=== PATIENT | male | born 1945 | race Caucasian/White ===

== ENCOUNTER 2018-01-03 08:00 | Outpatient (CLI) | payer MEDICARE, OTHER ==
[2018-01-03 13:26] LABS: BASOPHILS % (AUTO) 0.6 %; EOSINOPHILS # (AUTO) 0.3 10^3/uL (0.0-0.7); EOSINOPHILS % (AUTO) 7.1 %; HGB - HEMOGLOBIN 15.4 g/dL (14.0-18.0); LYMPHOCYTES # (AUTO) 1.3 10^3/uL (1.5-3.5); LYMPHOCYTES % (AUTO) 36.6 %; MEAN CORPUSCULAR HEMOGLOBIN 32.6 pg (27.0-31.0); MEAN CORPUSCULAR HGB CONC 34.3 g/dL (32.0-36.0); MEAN CORPUSCULAR VOLUME 95.1 fL (80.0-94.0); MEAN PLATELET VOLUME 8.5 fL (7.4-11.4); MONOCYTES # (AUTO) 0.5 10^3/uL (0.0-1.0); NEUTROPHILS # (AUTO) 1.5 10^3/uL (1.5-6.6); NEUTROPHILS % (AUTO) 42.7 %; PLT - PLATELET COUNT 182 10^3/uL (130-450); RED BLOOD COUNT 4.73 10^6/uL (4.70-6.10); RED CELL DISTRIBUTION WIDTH 13.7 % (12.0-15.0); WHITE BLOOD COUNT 3.5 x10^3/uL (4.8-10.8)
[2018-01-03 13:47] LABS: ALBUMIN 4.1 g/dL (3.2-5.5); ALBUMIN/GLOBULIN RATIO 1.1 (1.0-2.2); ALKALINE PHOSPHATASE 54 IU/L (42-121); ALT ALANINE AMINOTRANSFERASE 47 IU/L (10-60); AST ASPARTATE AMINOTRANSFERASE 53 IU/L (10-42); BILIRUBIN,TOTAL 0.7 mg/dL (0.2-1.0); BUN - BLOOD UREA NITROGEN 12 mg/dL (6-20); CALCIUM 9.3 mg/dL (8.5-10.3); CARBON DIOXIDE - CO2 28 mmol/L (21-32); CHLORIDE 103 mmol/L (101-111); CHOL/HDL RATIO 5.3 (<5.0); CHOLESTEROL 210 mg/dL; CREATININE 0.9 mg/dL (0.6-1.2); GFR - MDRD 83 (>89); GLUCOSE 101 mg/dL (70-100); HDL CHOLESTEROL 40 mg/dL; LDL CHOLESTEROL,CALCULATED 125 mg/dL; LDL/HDL RATIO 3.1 (<3.6); SODIUM 136 mmol/L (135-145); TOTAL PROTEIN 7.7 g/dL (6.7-8.2); VLDL CHOLESTEROL 45 mg/dL
== END 2018-01-03 08:01 | disposition home or self-care (01) ==
LOC: LAB.WCP 08:00
PROVIDERS: ATTEND Family Medicine
DX: I73.00 Raynaud's syndrome without gangrene (principal); E78.5 Hyperlipidemia, unspecified; Z12.5 Encounter for screening for malignant neoplasm of prostate
CPT/HCPCS: 36415; 80053; 80061; 84443; 85025; G0103; 83721; 84153

== ENCOUNTER → 2018-05-16 | Outpatient (CLI) | payer MEDICARE, OTHER ==
[2018-05-16 12:21] LABS: CHOL/HDL RATIO 4.1 (<5.0); CHOLESTEROL 195 mg/dL; HDL CHOLESTEROL 48 mg/dL; LDL CHOLESTEROL,CALCULATED 123 mg/dL; LDL/HDL RATIO 2.6 (<3.6); VLDL CHOLESTEROL 24 mg/dL
[2018-05-16 12:34] LABS: HB2 TOTAL 16.3 g/dL; HEMOGLOBIN A1C 0.55 g/dL; HEMOGLOBIN A1C % 5.2 % (4.6-6.2)
[2018-05-16 12:43] LABS: FOLATE 21.44 ng/mL (5.90 - >24.8)
[2018-05-19 14:52] LABS: ALBUMIN 4.2 g/dL (3.8-4.8); ALPHA 1 GLOBULIN 0.2 g/dL (0.2-0.3); ALPHA 2 GLOBULIN 0.6 g/dL (0.5-0.9); BETA 1 GLOBULIN 0.4 g/dL (0.4-0.6); BETA 2 GLOBULIN 0.5 g/dL (0.2-0.5); GAMMA GLOBULIN 1.2 g/dL (0.8-1.7)
== END ==
LOC: LAB.WCP 08:00
PROVIDERS: ATTEND Family Medicine
DX: E78.5 Hyperlipidemia, unspecified (principal); G60.3 Idiopathic progressive neuropathy
CPT/HCPCS: 36415; 80061; 82607; 82746; 83036; 83721; 84155; 84165; 85651

== ENCOUNTER 2019-01-01 14:58 | Outpatient (CLI) | payer MEDICARE, OTHER ==
--- NOTE | 2019-01-01 16:48 | Ultrasound Report ---
Reason: MONOCLONAL GAMMOPATHY Procedure Date: 01/01/2019 Accession Number: [id number] / [id number] Procedure: US - Abdomen Complete CPT Code: FULL RESULT: EXAM: ABDOMEN ULTRASOUND EXAM DATE: 01/01/2019 03:07 PM. CLINICAL HISTORY: MONOCLONAL GAMMOPATHY. COMPARISON: None. TECHNIQUE: Real-time scanning was performed with static images obtained. FINDINGS: Liver: No evidence of hepatomegaly or suspicious mass. Diffusely echogenic liver parenchyma. Vertical length is 15.1 cm. Main portal vein flow: Hepatopetal. Gallbladder: Normal. No stones, wall thickening, or sonographic Arndt's sign. Biliary System: Common bile duct measures 2.3 mm. No intrahepatic or extrahepatic ductal dilatation. Pancreas: Pancreas cannot be evaluated because it is obscured by overlying bowel gas. Kidneys: Right: Right renal length is 11.0 cm. Normal. No contour-deforming mass, stones, or hydronephrosis. Left: Left renal length is 10.4 cm. Normal. No contour-deforming mass, stones, or hydronephrosis. Spleen: Splenic length is 9.0 cm. Normal in size and echotexture. Aorta and Inferior Vena Cava: Unremarkable. Abdominal aorta measures 2.1 x 1.6 x 1.9 cm. Other: None. IMPRESSION: 1. Diffusely echogenic liver parenchyma, most often associated with steatosis, but can be associated with cirrhosis and chronic hepatitis. No focal mass or hepatosplenomegaly. 2. The pancreas cannot be evaluated. 3. Otherwise negative examination. RADIA
--- NOTE | 2019-01-02 10:20 | XRAY Report ---
Reason: MONOCLONAL GAMMOPATHY Procedure Date: 01/01/2019 Accession Number: [id number] / [id number] Procedure: XR - Skeletal Survey CPT Code: FULL RESULT: EXAM: OSSEOUS SURVEY EXAM DATE: 01/01/2019 05:05 PM. CLINICAL HISTORY: Monoclonal gammopathy. COMPARISON: None. TECHNIQUE: Complete - Frontal and lateral views of the skull, chest, spine, pelvis, portions of the upper extremities, and portions of the lower extremities. FINDINGS: Skull: No fractures or bone lesions. Chest: The lungs are clear. The cardiomediastinal silhouette is normal. No rib fractures or bone lesions. Cervical Spine: No fracture or bone lesion. There is minimal diffuse degenerative disk and facet disease seen throughout the mid and lower aspects of the cervical spine. Thoracic Spine: No fracture or bone lesion. There is minimal diffuse degenerative disk and facet disease seen throughout the mid and lower aspects of the thoracic spine. Lumbar Spine: No fracture or bone lesion. There is mild diffuse degenerative disk and facet disease seen throughout the mid and lower aspects of the cervical spine. Pelvis: No fractures or bone lesions. Mild bilateral hip DJD changes are seen. Upper Extremities: No fractures or bone lesions. The visualized joint spaces are normal. Lower Extremities: No fractures or bone lesions. The visualized joint spaces are normal. Other: The other visualized soft tissues are normal. IMPRESSION: No bone lesion demonstrated. Minimal to mild degenerative changes seen in the spine and hips. RADIA
== END 2019-01-01 14:59 | disposition home or self-care (01) ==
LOC: DI 14:58
PROVIDERS: ATTEND Internal Medicine
DX: D47.2 Monoclonal gammopathy (principal); M51.34 Other intervertebral disc degeneration, thoracic region; M51.36 Other intervertebral disc degeneration, lumbar region; M47.9 Spondylosis, unspecified; M50.30 Other cervical disc degeneration, unspecified cervical region; M16.0 Bilateral primary osteoarthritis of hip
CPT/HCPCS: 76700; 77075

== ENCOUNTER 2019-04-02 07:09 | Outpatient (CLI) | payer MEDICARE, OTHER ==
[2019-04-02 13:31] LABS: ALBUMIN 4.1 g/dL (3.2-5.5); ALBUMIN/GLOBULIN RATIO 1.1 (1.0-2.2); ALKALINE PHOSPHATASE 50 IU/L (42-121); ALT ALANINE AMINOTRANSFERASE 35 IU/L (10-60); AST ASPARTATE AMINOTRANSFERASE 43 IU/L (10-42); BILIRUBIN,TOTAL 1.2 mg/dL (0.2-1.0); BUN - BLOOD UREA NITROGEN 13 mg/dL (6-20); CALCIUM 9.5 mg/dL (8.5-10.3); CARBON DIOXIDE - CO2 27 mmol/L (21-32); CHLORIDE 102 mmol/L (101-111); CHOL/HDL RATIO 3.4 (<5.0); CHOLESTEROL 187 mg/dL; CREATININE 0.9 mg/dL (0.6-1.2); GFR - MDRD 83 (>89); GLUCOSE 96 mg/dL (70-100); HDL CHOLESTEROL 55 mg/dL; LDL CHOLESTEROL,CALCULATED 112 mg/dL; SODIUM 140 mmol/L (135-145); TOTAL PROTEIN 7.7 g/dL (6.7-8.2); VLDL CHOLESTEROL 20 mg/dL
== END 2019-04-02 07:10 | disposition home or self-care (01) ==
LOC: LAB.WCP 07:09
PROVIDERS: ATTEND Family Medicine
DX: E78.5 Hyperlipidemia, unspecified (principal); Z12.5 Encounter for screening for malignant neoplasm of prostate; G62.9 Polyneuropathy, unspecified
CPT/HCPCS: 36415; 80053; 80061; 82607; G0103; 83721; 84153

== ENCOUNTER 2019-04-22 | Outpatient (CLI) | payer MEDICARE, OTHER | END 2019-04-22 23:59 | disposition home or self-care (01) | DX: R74.8 Abnormal levels of other serum enzymes (principal) ==

== ENCOUNTER 2020-03-31 08:00 | Outpatient (CLI) | payer MEDICARE, OTHER ==
[2020-03-31 12:37] LABS: ALBUMIN 4.2 g/dL (3.2-5.5); ALBUMIN/GLOBULIN RATIO 1.4 (1.0-2.2); ALKALINE PHOSPHATASE 50 IU/L (42-121); ALT ALANINE AMINOTRANSFERASE 34 IU/L (10-60); AST ASPARTATE AMINOTRANSFERASE 48 IU/L (10-42); BILIRUBIN,TOTAL 1.1 mg/dL (0.2-1.0); BUN - BLOOD UREA NITROGEN 17 mg/dL (6-20); CALCIUM 9.6 mg/dL (8.5-10.3); CARBON DIOXIDE - CO2 27 mmol/L (21-32); CHLORIDE 99 mmol/L (101-111); CHOL/HDL RATIO 3.1 (<5.0); CHOLESTEROL 179 mg/dL; GLUCOSE 91 mg/dL (70-100); HDL CHOLESTEROL 57 mg/dL; LDL CHOLESTEROL,CALCULATED 104 mg/dL; LDL/HDL RATIO 1.8 (<3.6); SODIUM 137 mmol/L (135-145); TOTAL PROTEIN 7.3 g/dL (6.7-8.2); VLDL CHOLESTEROL 18 mg/dL
== END 2020-03-31 23:59 | disposition home or self-care (01) ==
LOC: LAB.WCP 08:00
PROVIDERS: ATTEND Physician Assistant Medical
DX: R74.8 Abnormal levels of other serum enzymes (principal); E78.5 Hyperlipidemia, unspecified; Z12.5 Encounter for screening for malignant neoplasm of prostate; E53.8 Deficiency of other specified B group vitamins
CPT/HCPCS: 36415; 80053; 80061; 82607; G0103; 83721; 84153

== ENCOUNTER 2021-06-01 07:20 | Outpatient (CLI) | payer MEDICARE, OTHER ==
[2021-06-01 11:49] LABS: BASOPHILS % (AUTO) 0.6 %; EOSINOPHILS # (AUTO) 0.2 10^3/uL (0.0-0.7); EOSINOPHILS % (AUTO) 7.7 %; HCT - HEMATOCRIT 43.6 % (42.0-52.0); HGB - HEMOGLOBIN 14.3 g/dL (14.0-18.0); LYMPHOCYTES # (AUTO) 1.1 10^3/uL (1.5-3.5); LYMPHOCYTES % (AUTO) 36.3 %; MEAN CORPUSCULAR HEMOGLOBIN 32.5 pg (27.0-31.0); MEAN CORPUSCULAR HGB CONC 32.8 g/dL (32.0-36.0); MEAN CORPUSCULAR VOLUME 99.1 fL (80.0-94.0); MEAN PLATELET VOLUME 9.9 fL (7.4-11.4); MONOCYTES # (AUTO) 0.6 10^3/uL (0.0-1.0); MONOCYTES % (AUTO) 18.6 %; NEUTROPHILS # (AUTO) 1.1 10^3/uL (1.5-6.6); NEUTROPHILS % (AUTO) 36.8 %; PLT - PLATELET COUNT 238 10^3/uL (130-450); RED CELL DISTRIBUTION WIDTH 12.8 % (12.0-15.0); WHITE BLOOD COUNT 3.1 x10^3/uL (4.8-10.8)
[2021-06-01 12:37] LABS: ALBUMIN 3.8 g/dL (3.2-5.5); ALKALINE PHOSPHATASE 46 IU/L (42-121); ALT ALANINE AMINOTRANSFERASE 22 IU/L (10-60); AST ASPARTATE AMINOTRANSFERASE 32 IU/L (10-42); BILIRUBIN,TOTAL 0.6 mg/dL (0.2-1.0); BUN - BLOOD UREA NITROGEN 18 mg/dL (6-20); CALCIUM 9.5 mg/dL (8.5-10.3); CARBON DIOXIDE - CO2 27 mmol/L (21-32); CHLORIDE 101 mmol/L (101-111); CHOL/HDL RATIO 3.3 (<5.0); CHOLESTEROL 182 mg/dL; CREATININE 0.8 mg/dL (0.6-1.2); GFR - MDRD 94 (>89); GLUCOSE 102 mg/dL (70-100); HDL CHOLESTEROL 55 mg/dL; LDL CHOLESTEROL,CALCULATED 116 mg/dL; LDL/HDL RATIO 2.1 (<3.6); SODIUM 137 mmol/L (135-145); TOTAL PROTEIN 7.5 g/dL (6.7-8.2); TRIGLYCERIDES 54 mg/dL; VLDL CHOLESTEROL 11 mg/dL
== END 2021-06-01 23:59 | disposition home or self-care (01) ==
LOC: LAB.WCP 07:20
PROVIDERS: ATTEND Physician Assistant Medical
DX: E78.5 Hyperlipidemia, unspecified (principal); E53.8 Deficiency of other specified B group vitamins; N52.9 Male erectile dysfunction, unspecified
CPT/HCPCS: 36415; 80053; 80061; 82607; 83721; 84153; 85025

== ENCOUNTER 2021-06-30 15:48 | Outpatient (CLI) | payer MEDICARE, OTHER ==
--- NOTE | 2021-06-30 16:32 | XRAY Report ---
PROCEDURE: Chest 2 View X-Ray INDICATIONS: CHEST PX TECHNIQUE: 2 view(s) of the chest. COMPARISON: None. FINDINGS: Surgical changes and devices: None. Lungs and pleura: No pleural effusions or pneumothorax. Lungs are clear. Mediastinum: Mediastinal contours are normal. Heart size is normal. Bones and chest wall: No suspicious bony abnormalities. Soft tissues appear unremarkable. IMPRESSION: No acute cardiopulmonary pathology. Reviewed by: Joaquín Lora MD on 06/30/2021 4:30 PM PDT Approved by: Joaquín Lora MD on 06/30/2021 4:30 PM PDT Station ID: [id number]
== END 2021-06-30 15:49 | disposition home or self-care (01) ==
LOC: DI.N 15:48
PROVIDERS: ATTEND Physician Assistant Medical
DX: R07.9 Chest pain, unspecified (principal)

== ENCOUNTER 2021-08-10 08:47 | Outpatient (CLI) | payer MEDICARE, OTHER ==
--- NOTE | 2021-08-10 10:00 | CARDIAC PROCEDURE NOTE ---
Stress Test Report Service Date: 08/10/21 Service Time: 09:00 Ordering Provider: Amy Lehman PA-C Indication for Test: Assess chest pain. Significant Medical History: Doug has been generally healthy and active, treated only with simvastatin for about 10 years for hyperlipidemia in the setting of a minor family history of coronary artery disease (see below). [place] is [place] on [employer] [place] and in [place] in [place]. He generally tolerates these activities very well and is here today because he had a single episode of pressure-like chest pain that occurred at about 9000 feet while "yeung boning" (sidestepping vigorously[place] up the [place]. He describes this level of exertion as quite beyond what he is normally acccustomed to. He was already somewhat sweaty and does not recall being more so. He does not recall being unable to catch his breath, having lightheadedness or palpitations. The discomfort abated with rest after a few minutes. Over the ensuing 6 months he has pursued his regular sea level activities without recurrent symptoms. Cardiac Risk Factors: There is some CAD history in his father's family that may have included his grandparents; his father had a couple of stents in his early-mid 70s and was also treated for intermittent atrial fibrillation. Doug has been treated with statin for about 10 years, but has no history of diabetes, hypertension or cigarette smoking ever. Type of Stress Test: ETT with Myocardial Perfusion Imaging Procedure: -Exercise Treadmill Test- After signing informed consent, the patient rest 99Tc SPECT imaging and then performed treadmill exercise using a Korey protocol. The patient exercised for 8 minutes 12 seconds and achieved a peak heart rate of 145 (99 percent predicted maximum heart rate for age), and an estimated workload of 10.2 METS. The test was terminated due to fatigue/shortness of breath with mild pressure- like lower substernal discomfort, having achieved target heart rate. Resting heart rate: 68 Peak heart rate: 145 Normal response to exercise. Resting BP: 139/83 Peak BP: 197/83 Borderline hypertensive at rest with physiologic BP response to exercise. Rhythm during exercise: Sinus rhythm throughout. Symptoms: Patient developed mild pressure-like substernal discomfort (rated "2/10") in mid stage 2, with slight incremental increase at peak exertion and rapid dissipation in recovery. EKG at rest showed normal sinus rhythm with marked left axis deviation (-77 degrees) and borderline intraventricular conduction delay (WXPz=069 ms); differential includes left anterior fascicular block with QRS prolongation and prior anteroseptal infarct versus left bundle branch block. EKG at peak stress showed no ischemia by EKG criteria, though EKG is deemed unreliable due to intraventricular conduction delay. In Recovery heart rate and blood pressure returned to near baseline levels. Nuclear imaging performed at rest and with stress and interpretation will be reported separately. IVahe MD, was present throughout this treadmill stress study and supervised it in its entirety. Summary: 1) Exercise tolerance well above average for age as evidenced by MORENA of -29%. 2) Abnormal resting EKG. 3) Adequate level of exercise was achieved on this treadmill stress test. 4) Borderline hypertensive at baseline with physiologic BP response to exercise. 5) No ischemic changes by EKG criteria were seen at peak stress. 6) Nuclear image interpretation includes normal left ventricular size and systolic function. Per my interpretation, resting SPECT images show a small inferior defect and a moderate-sized perfusion defect lateral to the apex; following peak stress there is no change in appearance of the inferior defect and a slight increase in size of the infero-apical defect. Formal overread by Radiologist differs, with report of normal perfusion in both rest and stress phases. CONCLUSIONS: 1) Clinically positive study with recreation of discomfort of similar quality for which the study was ordered. 2) EKG probably uninterpretable due to resting conduction abnormality. 3) 99Tc-Myoview SPECT images appear to show a small fixed inferior defect and a larger resting apical lateral defect, that is larger following peak stress, consistent with lior-scar ischemia. 4) Due to resting borderline blood pressure, monitoring and creation of BP log was recommended. Patient also recommended to bring his wrist cuff into a visit with his provider to assess its accuracy. 5) Additional recommendations discussed with referring provider and patient include: resume daily 81 mg ASA, rx prn SL NTG and referral to Cardiology (patient desires to see Dr Greenwood) for further evaluation. Patient was provided with a CD containing the nuclear images, for review at Cardiology evaluation. ]
--- NOTE | 2021-08-10 13:55 | Nuclear Medicine Report ---
PROCEDURE: Rest and exercise myocardial perfusion SPECT with gated imaging and ejection fraction INDICATIONS: CHEST PAIN/EXERCISE RADIOPHARMACEUTICAL: 12.2 mCi Tc-99m Myoview IV at rest and 32.2 mCi Tc-99m Myoview IV at peak exerc ise. Tie-ney-podykjvn was performed. TECHNIQUE: Radiopharmaceutical was injected at peak stress test, and also at rest. SPECT images wer e obtained. SPECT myocardial perfusion images were displayed in short axis, horizontal long axis, an d vertical long axis views. Gated images were reviewed using AutoQUANT software. COMPARISON: None available. FINDINGS: Raw data: There is good myocardial labeling by radiotracer. No significant motion artifacts. Lung- to-heart ratio is 0.28 (normal is less than 0.46 for tetrafosmin tracer). Left ventricle function: Gated images demonstrate normal left ventricle wall thickening. No segment al wall motion abnormality. No transient ischemic dilation; TID is 0.96 (normal less than 1.30). Th e left ventricle resting end-diastolic volume is 69 mL. Left ventricle stress ejection fraction is 7 5%; normal values are above 45%. Myocardial perfusion: There is normal distribution of activity in the left and right ventricular ted cardium. No fixed or reversible perfusion defects. IMPRESSION: 1. Normal myocardial perfusion. 2. Normal left ventricular function. PQRS ATTESTATIONS: Measure 322 - Is this imaging test primarily performed on a low-risk surgery patient for preoperative evaluation within 30 days preceding their low-risk non-cardiac surgery? Low-risk surgery is defined as cardiac or myocardial infarction less than 1%, including (but not limited to) endoscopic pr ocedures, superficial procedures, cataract surgery, and excisional breast surgery: Answer: No Measure 323 - Is this imaging test performed primarily for the monitoring of an asymptomatic patient who had percutaneous coronary intervention on the visit date or within 2 years of the visit date? An swer: No Measure 324 - Is this imaging test performed primarily for the initial detection and risk assessment on an asymptomatic, low coronary heart disease patient? Low CHD risk definition = clinicians should consider the maximum number of available patient factors used to estimate risk based on Burgess (A TP III criteria), typically age, gender, diabetes, smoking status, and use of blood pressure medicati on, and integrate age appropriate estimates for missing elements, such as LDL or standard blood press ure. Answer: No Reviewed by: Sahbana Calvert MD on 08/10/2021 1:53 PM PST Approved by: Shabana Calvert MD on 08/10/2021 1:53 PM PST Station ID: [id number]
== END 2021-08-10 08:48 | disposition home or self-care (01) ==
LOC: DI 08:47
PROVIDERS: ATTEND Physician Assistant Medical
DX: R07.9 Chest pain, unspecified (principal); R93.1 Abnormal findings on diagnostic imaging of heart and coronary circulation; E78.5 Hyperlipidemia, unspecified; Z82.49 Family history of ischemic heart disease and other diseases of the circulatory system
CPT/HCPCS: 78452; 93016; 93017; 93018; A9500

== ENCOUNTER 2021-08-26 10:20 | Outpatient (CLI) | payer MEDICARE, OTHER | END 2021-08-26 10:21 | disposition home or self-care (01) | LOC: DI 10:20 | PROVIDERS: ATTEND Physician Assistant Medical | DX: R07.9 Chest pain, unspecified (principal); I87.8 Other specified disorders of veins; I77.810 Thoracic aortic ectasia | CPT/HCPCS: 93306 ==

== ENCOUNTER 2022-08-25 06:55 | Outpatient (CLI) | payer MEDICARE, OTHER ==
[2022-08-25 07:24] LABS: BASOPHILS % (AUTO) 0.9 %; EOSINOPHILS # (AUTO) 0.5 10^3/uL (0.0-0.7); HCT - HEMATOCRIT 45.7 % (42.0-52.0); HGB - HEMOGLOBIN 15.4 g/dL (14.0-18.0); LYMPHOCYTES # (AUTO) 1.6 10^3/uL (1.5-3.5); LYMPHOCYTES % (AUTO) 34.6 %; MEAN CORPUSCULAR HEMOGLOBIN 32.6 pg (27.0-31.0); MEAN CORPUSCULAR HGB CONC 33.7 g/dL (32.0-36.0); MEAN CORPUSCULAR VOLUME 96.8 fL (80.0-94.0); MEAN PLATELET VOLUME 9.2 fL (7.4-11.4); MONOCYTES # (AUTO) 0.7 10^3/uL (0.0-1.0); MONOCYTES % (AUTO) 14.5 %; NEUTROPHILS # (AUTO) 1.8 10^3/uL (1.5-6.6); NEUTROPHILS % (AUTO) 38.8 %; PLT - PLATELET COUNT 200 10^3/uL (130-450); RED BLOOD COUNT 4.72 10^6/uL (4.70-6.10); RED CELL DISTRIBUTION WIDTH 13.5 % (12.0-15.0); WHITE BLOOD COUNT 4.6 x10^3/uL (4.8-10.8)
[2022-08-25 07:55] LABS: ALBUMIN 4.1 g/dL (3.2-5.5); ALBUMIN/GLOBULIN RATIO 1.1 (1.0-2.2); ALKALINE PHOSPHATASE 50 IU/L (42-121); ALT ALANINE AMINOTRANSFERASE 34 IU/L (10-60); AST ASPARTATE AMINOTRANSFERASE 42 IU/L (10-42); BILIRUBIN,TOTAL 1.2 mg/dL (0.2-1.0); BUN - BLOOD UREA NITROGEN 15 mg/dL (6-20); CALCIUM 9.6 mg/dL (8.5-10.3); CARBON DIOXIDE - CO2 27 mmol/L (21-32); CHLORIDE 102 mmol/L (101-111); CHOL/HDL RATIO 3.1 (<5.0); CHOLESTEROL 187 mg/dL; CREATININE 0.9 mg/dL (0.6-1.2); GFR - MDRD 82 (>89); GLUCOSE 100 mg/dL (70-100); HDL CHOLESTEROL 61 mg/dL; LDL CHOLESTEROL,CALCULATED 113 mg/dL; LDL/HDL RATIO 1.9 (<3.6); POTASSIUM 4.2 mmol/L (3.5-5.0); SODIUM 139 mmol/L (135-145); TOTAL PROTEIN 7.7 g/dL (6.7-8.2); TRIGLYCERIDES 66 mg/dL; VLDL CHOLESTEROL 13 mg/dL
== END 2022-08-25 06:56 | disposition home or self-care (01) ==
LOC: LAB 06:55
PROVIDERS: ATTEND Physician Assistant Medical
DX: R74.8 Abnormal levels of other serum enzymes (principal); E78.5 Hyperlipidemia, unspecified; E53.8 Deficiency of other specified B group vitamins; Z12.5 Encounter for screening for malignant neoplasm of prostate
CPT/HCPCS: 36415; 80053; 80061; 82607; 85025; G0103; 83721; 84153

== ENCOUNTER 2023-07-28 07:23 | Outpatient (CLI) | payer MEDICARE, OTHER ==
[2023-07-28 08:10] LABS: CHOL/HDL RATIO 3.2 (<5.0); CHOLESTEROL 167 mg/dL; HDL CHOLESTEROL 53 mg/dL; LDL CHOLESTEROL,CALCULATED 98 mg/dL; LDL/HDL RATIO 1.8 (<3.6); TRIGLYCERIDES 81 mg/dL (48-352); VLDL CHOLESTEROL 16 mg/dL
== END 2023-07-28 07:24 | disposition home or self-care (01) ==
LOC: LAB 07:23
PROVIDERS: ATTEND Physician Assistant Medical
DX: E78.5 Hyperlipidemia, unspecified (principal); E53.8 Deficiency of other specified B group vitamins; R97.20 Elevated prostate specific antigen [PSA]
CPT/HCPCS: 36415; 80061; 82607; 83721; 84153; 84154

== ENCOUNTER 2023-10-10 11:02 | Emergency (ER) | payer MEDICARE, OTHER ==
--- NOTE | 2023-10-10 12:09 | ED Physician Documentation ---
History of Present Illness - Stated complaint Stated Complaint: DOUBLE VISION - Chief complaint Chief Complaint: Neuro - History obtained from History obtained from: Patient - History of Present Illness Timing: Yesterday Pain level max: 0 Pain level now: 0 - Additonal information Additional information: Patient is a 77-year-old male with a history of IgM monoclonal gammopathy of unclear significance. Has a history of chronic numbness in the bilateral lower extremities as well. No cardiac history. He states he was playing [employer] yesterday when he had about a 10 to 15-second episode of blurred vision, lightheadedness and appeared pale to his plain partner. Symptoms resolved quickly. He was able to continue his game without any ill effects. He has not had any symptoms since that time. No focal weakness, numbness, difficulty with speech, facial droop, etc. He states he did have another episode about 10 to 11 days ago when he was going to the bathroom and felt lightheaded. Currently is fully asymptomatic. Not on anticoagulants. Review of Systems Constitutional: denies: Fever, Chills Throat: denies: Sore throat GI: denies: Abdominal Pain, Vomiting, Diarrhea Skin: denies: Rash Musculoskeletal: denies: Neck pain, Back pain Neurologic: denies: Headache PD PAST MEDICAL HISTORY - Past Medical History Past Medical History: Yes Cardiovascular: High cholesterol Respiratory: None Neuro: None, Peripheral neuropathy Endocrine/Autoimmune: None GI: None : None Psych: None Musculoskeletal: None Derm: None - Past Surgical History Past Surgical History: Yes General: Appendectomy Ortho: Arthroscopic surgery - Present Medications Home Medications: Ambulatory Orders Medication Instructions Recorded Confirmed Acyclovir 400 mg PO TID PRN 12/05/18 10/10/23 NIFEdipine [Adalat cc] 30 mg PO DAILY PRN 12/05/18 10/10/23 Sildenafil Citrate [Viagra] 100 mg PO DAILY PRN 12/05/18 10/10/23 Simvastatin [Zocor] 20 mg PO DAILY 12/05/18 10/10/23 - Allergies Allergies/Adverse Reactions: Allergies Allergy/AdvReac Type Severity Reaction Status Date / Time No Known Drug Allergies Allergy Verified 10/10/23 11:08 - Social History Does the pt smoke?: No Smoking Status: Never smoker Does the pt drink ETOH?: Yes ETOH Use: Beer Does the pt have substance abuse?: Yes Substance Use and Type: CBD oil / Products - Immunizations Immunizations are current?: Yes - POLST Patient has POLST: No PD ED PE NORMAL - Vitals Vital signs reviewed: Yes - General General: Alert and oriented X 3, No acute distress - HEENT HEENT: Atraumatic, PERRL, EOMI, Moist mucous membranes - Neck Neck: Supple, no meningeal sign, No bony TTP, No JVD, No bruit - Cardiac Cardiac: RRR, No murmur, No gallop, No rub, Strong equal pulses - Respiratory Respiratory: No respiratory distress, Clear bilaterally - Abdomen Abdomen: Soft, Non tender, Non distended - Back Back: No spinal TTP - Derm Derm: Warm and dry - Extremities Extremities: No edema, No calf tenderness / cord - Neuro Neuro: Alert and oriented X 3, insurance account assistant 2-12 intact, No motor deficit, No sensory deficit, Normal speech Eye Opening: Spontaneous Motor: Obeys Commands Verbal: Oriented GCS Score: 15 - Psych Psych: Normal mood, Normal affect Results - Vitals Vitals: Vital Signs - 24 hr 10/10/23 10/10/23 10/10/23 11:11 12:18 13:39 Temperature 36.3 C L 36.8 C Heart Rate 70 61 60 Respiratory 16 19 16 Rate Blood Pressure 148/71 H 141/65 H 141/76 H O2 Saturation 100 97 100 Oxygen O2 Source Room air - EKG (time done) 1213 EKG releavant findings:: EKG personally interpreted by author of this note. Relevant findings are: Rate: Rate (enter#) (58) Rhythm: NSR [place]: Normal Intervals: RBBB (Incomplete) QRS: Normal Ischemia: Normal ST segments - Labs Labs: Laboratory Tests 10/10/23 10/10/23 12:30 12:30 WBC 3.6 L RBC 4.45 L Hgb 14.3 Hct 43.6 MCV 98.0 H MCH 32.1 H MCHC 32.8 RDW 13.6 Plt Count 216 MPV 9.8 Neut # (Auto) 1.6 Lymph # (Auto) 1.2 L [place] # (Auto) 0.6 Eos # (Auto) 0.2 Baso # (Auto) 0.0 Absolute Nucleated RBC 0.00 Nucleated RBC % 0.0 Sodium 139 Potassium 4.1 Chloride 102 Carbon Dioxide 28 Anion Gap 9.0 BUN 15 Creatinine 0.8 Estimated GFR (MDRD) 94 Glucose 97 Calcium 9.7 Total Bilirubin 0.5 AST 34 ALT 25 Alkaline Phosphatase 48 Troponin I High Sens 2.7 Total Protein 7.5 Albumin 4.1 Globulin 3.4 Albumin/Globulin Ratio 1.2 Lipase 70 - Rads (name of study) cxr Relevant Findings:: Final report received, See rad report PD Medical Decision Making - ED course Complexity details: reviewed results, re-evaluated patient, considered differential, d/w patient ED course: Patient with an episode of 10 to 15 seconds of appearing pale along with blurred vision yesterday while playing [employer]. No chest pain. No headache, no tr auma. No indication for emergent neuroimaging. No acute findings on EKG, chest x-ray, laboratory testing. No focal neurological deficits to suggest TIA or stroke. Symptoms are more consistent with potential arrhythmia. Recommend that he follow-up closely with his PCP for a heart monitor. Recommend that he return if you develop any focal neurological deficits, recurrent symptoms or any new or worsening symptoms. He is currently fully asymptomatic. Ambulating without difficulty. Patient counseled regarding signs and symptoms for which I believe and urgent re-evaluation would be necessary. Patient with good understanding of and agreement to plan and is comfortable going home at this time This document was made in part using voice recognition software. While efforts are made to proofread this document, sound alike and grammatical errors may occur. Departure - Departure Disposition: 01 Home, Self Care Clinical Impression: Light-headed feeling Condition: Good Instructions: ED Near Syncope Unkn Follow-Up: Bella Lehman PA-C [Primary Care Provider] - Within 1 week Comments: Your symptoms today are concerning for a potential arrhythmia. It is recommended you contact your primary care provider to have a Holter monitor or Zio patch placed which can monitor you for any potential arrhythmias. Your laboratory testing, EKG and chest x-ray do not show any acute abnormalities today. You have no neurological deficits today. Please return if you worsen. Forms: PCP List Discharge Date/Time: 10/10/23 13:39 NIHSS - Time Time: 12:05 - Level of Consciousness Level of consciousness: (0) Alert, Keenly responsive LOC Questions: (0) Answers both Q's correct LOC Commands: (0) Performs both correctly - Gaze Best Gaze: (0) Normal - Visual Visual: (0) No loss - Facial Palsy Facial Palsy: (0) Normal, symmetrical movement - Motor Arms (both separate) Motor Arm (right): (0) No drift Motor Arm (left): (0) No drift - Motor Legs (both separate) Motor Leg (right): (0) No drift Motor Leg (left): (0) No drift - Limb Ataxia Limb Ataxia: (0) Absent - Sensory Sensory: (0) Normal - Best Language Best Language: (0) No aphasia - Dysarthria Dysarthria: (0) Normal - Extinction and Inattention (formally neg Extinction and inattention: (0) No abnormality - Total Score/Results Total Score/Result: 0
--- NOTE | 2023-10-10 12:20 | XRAY Report ---
PROCEDURE: Chest 1V INDICATIONS: Chest Pain TECHNIQUE: One view of the chest was acquired. COMPARISON: 06/30/2021 FINDINGS: Surgical changes and devices: None. Lungs and pleura: No pleural effusions or pneumothorax. Lungs are clear. Mediastinum: Mediastinal contours appear normal. Heart size is normal. Bones and chest wall: No suspicious bony lesions. Overlying soft tissues appear unremarkable. IMPRESSION: No acute cardiopulmonary process. Reviewed by: Shabana Cody MD on 10/10/2023 12:19 PM PST Approved by: Shabana Cody MD on 10/10/2023 12:19 PM [facility] Station ID: [id number]
[2023-10-10 12:53] LABS: ALBUMIN 4.1 g/dL (3.2-5.5); ALBUMIN/GLOBULIN RATIO 1.2 (1.0-2.2); BILIRUBIN,TOTAL 0.5 mg/dL (0.2-1.0); CALCIUM 9.7 mg/dL (8.5-10.3); CREATININE 0.8 mg/dL (0.6-1.3); POTASSIUM 4.1 mmol/L (3.5-4.5); TOTAL PROTEIN 7.5 g/dL (6.4-8.9)
[2023-10-10 13:00] LABS: TROPONIN I HIGH SENSITIVITY 2.7 ng/L (2.3-19.7)
[2023-10-10 13:09] LABS: BASOPHILS % (AUTO) 0.8 %; EOSINOPHILS # (AUTO) 0.2 10^3/uL (0.0-0.7); EOSINOPHILS % (AUTO) 4.1 %; HCT - HEMATOCRIT 43.6 % (42.0-52.0); HGB - HEMOGLOBIN 14.3 g/dL (14.0-18.0); LYMPHOCYTES # (AUTO) 1.2 10^3/uL (1.5-3.5); LYMPHOCYTES % (AUTO) 33.7 %; MEAN CORPUSCULAR HEMOGLOBIN 32.1 pg (27.0-31.0); MEAN CORPUSCULAR HGB CONC 32.8 g/dL (32.0-36.0); MEAN PLATELET VOLUME 9.8 fL (7.4-11.4); MONOCYTES # (AUTO) 0.6 10^3/uL (0.0-1.0); MONOCYTES % (AUTO) 17.4 %; NEUTROPHILS # (AUTO) 1.6 10^3/uL (1.5-6.6); PLT - PLATELET COUNT 216 10^3/uL (130-450); RED BLOOD COUNT 4.45 10^6/uL (4.70-6.10); RED CELL DISTRIBUTION WIDTH 13.6 % (12.0-15.0); WHITE BLOOD COUNT 3.6 x10^3/uL (4.8-10.8)
[2023-10-10 13:42] VITALS: BP 141/76; O2SAT 100
== END 2023-10-10 13:39 | disposition home or self-care (01) ==
LOC: ED 11:02
DX: R42 Dizziness and giddiness (principal)
CPT/HCPCS: 36415; 80053; 83690; 84484; 85025; 93005; 99283; 99284

== ENCOUNTER 2023-10-19 08:19 | Outpatient (CLI) | payer MEDICARE, OTHER ==
--- NOTE | 2023-10-19 15:53 | Ultrasound Report ---
PROCEDURE: Carotid Doppler Complete INDICATIONS: NEAR SYNCOPE TECHNIQUE: Color and pulse Doppler interrogation was performed of both carotid systems, with image documentation and velocity measurements. COMPARISON: None. FINDINGS: Right side: Brachial blood pressure: 133/64 mm Hg. Common carotid artery peak systolic velocity: 77 cm/sec. Internal carotid artery peak systolic velocity: 76 cm/sec. Internal carotid artery end diastolic velocity: 19 cm/sec. External carotid artery peak systolic velocity: 76 cm/sec. ICA/CCA peak systolic ratio: 1.0 . Stanley scale imaging description: Minimal plaque Percent internal carotid artery stenosis: Less than 50%. Vertebral artery: Flow direction is antegrade. Left side: Brachial blood pressure: 134/62 mm Hg. Common carotid artery peak systolic velocity: 80 cm/sec. Internal carotid artery peak systolic velocity: 79 cm/sec. Internal carotid artery end diastolic velocity: 20 cm/sec. External carotid artery peak systolic velocity: 84 cm/sec. ICA/CCA peak systolic ratio: 1.0 . Stanley scale imaging description: Mild plaque Percent internal carotid artery stenosis: Less than 50%. Vertebral artery: Flow direction is antegrade. IMPRESSION: 1. In the right internal carotid artery, there is less than 50 percent stenosis based on peak systoli c velocity criteria. 2. In the left internal carotid artery, there is less than 50% stenosis. based on peak systolic veloc ity criteria. 3. Antegrade blood flow within the right vertebral artery. 4. Antegrade blood flow within the left vertebral artery. The estimate of stenosis included in the report of the imaging study was calculated using the [facility]-end orsed standards of carotid artery stenosis. Reviewed by: Nikki Steen MD on 10/19/2023 3:52 PM PST Approved by: Nikki Steen MD on 10/19/2023 3:52 PM PST Station ID: [id number]
== END 2023-10-19 08:20 | disposition home or self-care (01) ==
LOC: DI 08:19
PROVIDERS: ATTEND Physician Assistant
DX: R55 Syncope and collapse (principal); I65.23 Occlusion and stenosis of bilateral carotid arteries
CPT/HCPCS: 93880